=== PATIENT | male | born 1990 | race Caucasian/White ===

== ENCOUNTER 2022-12-08 23:45 | Emergency (ER) | payer OTHER ==
[~2022-12-08] VITALS: Ht 177.8 cm; Wt 79.4 kg
[2022-12-09] MEDS ORDERED: FLUORESCEIN SODIUM OPHTH 1 EA STRIP ONE (00:36)
[2022-12-09 00:37] VITALS: BP 119/78; TEMP 98.4; O2SAT 99
[2022-12-09] MEDS ORDERED: oxyCODONE/APAP (5/325 MG) 1 UDTAB TABLET ONE ×2 (01:05→01:36)
[2022-12-09] MEDS ORDERED: OXYC-128 PO (01:08)
[2022-12-09] MEDS: oxyCODONE/APAP (5/325 MG) 1 UDTAB TABLET PO ONE ×2 (01:08→01:59)
[2022-12-09] MEDS ORDERED: ERYT3.5O9 EACHEYE (01:08)
[2022-12-09] MEDS ORDERED: ERYTHROMYCIN BASE OPHTH 3.5 GM TUBE OP ONE (01:30)
[2022-12-09] MEDS ORDERED: ERYTHROMYCIN BASE OPHTH 3.5 GM TUBE ONE (01:36)
== END 2022-12-09 03:12 | disposition home or self-care (01) ==
LOC: ER 23:53
DX: H16.133 Photokeratitis, bilateral (principal)

== ENCOUNTER 2023-09-22 14:55 | Emergency (ER) | payer OTHER ==
[~2023-09-22] VITALS: Ht 177.8 cm; Wt 80.7 kg
[~2023-09-22 14:55] MED LIST: ERYT3.5O9 EACHEYE; OXYC-128 PO
[2023-09-22 17:25] LABS: APPEARANCE,URINE Clear (CLEAR); BILIRUBIN,URINE Negative (NEGATIVE); BLOOD, URINE Negative Ery/uL (NEGATIVE); COLOR,URINE YELLOW (YELLOW); KETONES,URINE Negative (NEGATIVE); LEUKOCYTE ESTERASE ,URINE Negative (NEGATIVE); NITRITE, URINE Negative (NEGATIVE); PROTEIN,URINE Negative (NEGATIVE); UGLUCOSE Negative (NEGATIVE); UROBILINOGEN,URINE 0.2 EU/dL (0.2)
[2023-09-22] MEDS ORDERED: LEVO500T90 PO (17:50)
[2023-09-22 17:58] VITALS: BP 120/60; TEMP 98.7; O2SAT 98
== END 2023-09-22 17:59 | disposition home or self-care (01) ==
LOC: ER 14:55
DX: N45.1 Epididymitis (principal); N50.811 Right testicular pain; N50.812 Left testicular pain
CPT/HCPCS: 76870-TC

== ENCOUNTER 2024-02-28 11:16 | Emergency (ER) | payer OTHER ==
[~2024-02-28] VITALS: Ht 177.8 cm; Wt 79.4 kg
[~2024-02-28 11:16] MED LIST changes: +LEVO500T90 PO
[2024-02-28 12:34] LABS: BASOPHILS % (AUTO) 0.8 % (0.0-2.0); EOSINOPHILS # (AUTO) 0.1 K/uL (0.0-0.7); EOSINOPHILS % (AUTO) 1.6 % (0.0-6.0); HEMATOCRIT 48 % (39-51); HEMOGLOBIN 16.8 g/dL (13.5-17.5); LYMPHOCYTES # (AUTO) 1.5 K/uL (0.8-4.8); LYMPHOCYTES % (AUTO) 26.3 % (20.0-44.0); MEAN CORPUSCULAR HEMOGLOBIN 32 PG (26.0-33.0); MEAN CORPUSCULAR HGB CONC 35 g/dl (31.0-36.0); MEAN CORPUSCULAR VOLUME 91 fL (80-96); MONOCYTES # (AUTO) 0.4 K/uL (0.1-1.30); MONOCYTES % (AUTO) 7.6 % (2.0-12.0); NEUTROPHILS # (AUTO) 3.6 K/uL (1.8-8.9); NEUTROPHILS % (AUTO) 63.7 % (43.0-81.0); PLATELET COUNT (AUTO) 227 K/uL (150-450); RED BLOOD CELL COUNT(AUTO) 5.29 MIL/uL (4.5-6.0); WHITE BLOOD COUNT (AUTO) 5.6 K/uL (4.3-11.0)
[2024-02-28] MEDS ORDERED: MECL-159 PO (12:34)
[2024-02-28] MEDS ORDERED: MECLIZINE HCL 25 MG TABLET ONE (12:39)
[2024-02-28] MEDS: IV NS 0.9% 1,000 ML BAG IV ONE (12:44)
[2024-02-28] MEDS: MECLIZINE HCL 12.5 MG TABLET PO ONE (12:44)
[2024-02-28 12:50] LABS: CALCIUM, SERUM 9.5 mg/dL (8.5-10.1); CREATININE 1.1 mg/dL (0.6-1.3); POTASSIUM 4.2 mmol/L (3.5-5.1)
[2024-02-28 14:12] VITALS: BP 118/77; TEMP 98; O2SAT 100
== END 2024-02-28 14:12 | disposition home or self-care (01) ==
LOC: ER 11:16
DX: R42 Dizziness and giddiness (principal)
CPT/HCPCS: 99284; 96360; 93005; 85025; 80048; 36415; J8597; J7030